=== PATIENT | female | born 1990 | race Caucasian/White ===

== ENCOUNTER → 2018-06-10 | Outpatient (REF) | payer BC | LOC: M SFHCWAGY 16:03 | PROVIDERS: ATTEND Nurse Practitioner Women's Health | DX: Z12.4 Encounter for screening for malignant neoplasm of cervix (principal) ==

== ENCOUNTER → 2018-08-24 | Outpatient (CLI) | payer BC ==
[2018-08-24 18:08] LABS: BASO % 0.3 % (0.0-1.0); EOS # 0.1 10^3/uL (0.0-0.50); EOS % 1.8 % (0.0-3.0); HEMATOCRIT 38.6 % (36.0-47.0); HEMOGLOBIN 12.9 g/dl (12.0-15.5); LYMPH # 1.7 10^3/uL (1.5-6.5); LYMPH % 21.8 % (24.0-44.0); MEAN CORPUSCULAR HEMOGLOBIN 30.5 pg (27.0-33.0); MEAN CORPUSCULAR HGB CONC 33.4 g/dl (32.0-36.5); MEAN CORPUSCULAR VOLUME 91.3 fl (80.0-96.0); MONO # 0.8 10^3/uL (0.0-0.8); MONO % 9.8 % (0.0-5.0); NEUTROPHILS # 5.2 10^3/uL (1.8-7.7); NEUTROPHILS % 65.9 % (36.0-66.0); PLATELET COUNT, AUTOMATED 192 10^3/uL (150-450); RED BLOOD COUNT 4.23 10^6/uL (4.00-5.40); WHITE BLOOD COUNT 7.9 10^3/uL (4.0-10.0)
[2018-08-24 19:45] LABS: CHLAMYDIA DNA AMPLIFICATION NEGATIVE (NEGATIVE); GC DNA AMPLIFICATION NEGATIVE (NEGATIVE)
[2018-08-26 10:34] LABS: HIV 1&2 SCREEN CENTAUR NEGATIVE (NEGATIVE); RUBELLA IgG QUALITATIVE IMMUNE (IMMUNE)
== END ==
LOC: M SMT 15:25
PROVIDERS: ATTEND Advanced Practice Midwife
DX: Z34.81 Encounter for supervision of other normal pregnancy, first trimester (principal); Z3A.01 Less than 8 weeks gestation of pregnancy

== ENCOUNTER → 2018-11-15 | Outpatient (CLI) | payer BC ==
--- NOTE | 2018-11-15 17:54 | REP ---
Clinical: Anatomical evaluation. Comparison: None . Findings: Examination demonstrates a single live intrauterine in breech presentation. motion is identified by technologist. Placenta is noted posterior and grade zero without evidence for placenta previa or abruption. Amniotic fluid volume is normal. Cervix measures 3.3 cm in length and appears closed. No evidence for nuchal cord. Gestational age by current measurements 19 weeks 2 days with SHELDON 04/09/2019 . FHR equals 146 beats per minute. BPD 4.3 cm 19 weeks 1 day HC 15.1 cm 18 weeks 1 day AC 14.1 cm 19 weeks 3 days FL 2.6 cm 19 weeks 6 days HL 2.6 cm 10 weeks 1 day HC/AC ratio 1.07 Estimated weight 252 grams ( 27 percentile). Anatomical assessment demonstrates normal structures including cranium, choroid plexus, cavum, cerebellum/posterior fossa, facial features, lungs, diaphragm, stomach, cord insertion/three-vessel cord, bladder, spine, and extremities. Impression: 1. Single live intrauterine in breech presentation demonstrating appropriate estimated weight. 2. Limited evaluation of the heart/ventricular outflow tracts and kidneys due to positioning. Remainder of the anatomical assessment is complete and normal. Electronically Signed by Ryan Taylor MD 11/15/2018 05:46 P
== END ==
LOC: M RAD 16:35
PROVIDERS: ATTEND Advanced Practice Midwife
DX: Z34.82 Encounter for supervision of other normal pregnancy, second trimester (principal); Z3A.19 19 weeks gestation of pregnancy

== ENCOUNTER → 2018-12-16 | Outpatient (CLI) | payer BC ==
--- NOTE | 2018-12-16 18:45 | REP ---
Static ultrasound for anatomy follow-up: The previous anatomy ultrasound dated 11/15/2018 did not adequately demonstrate the four-chamber view of the heart, cardiac right and left ventricular outflow tracts or the kidneys. The study today is for follow-up of these anatomic structures. On the study today the four-chamber view of the heart, cardiac right and left ventricular outflow tracts and kidneys are adequately demonstrated and are unremarkable. On the study today the facial features are not optimally demonstrated but were adequately seen previously and unremarkable. On the study today the upper lower extremities are not optimally demonstrated but were optimally demonstrated previously and were unremarkable. The remainder of the anatomy today is unremarkable as previously. There are no anomalies. There is again a single intrauterine gestation. position is variable. heart rate is 153 beats per minute. The placenta is posterior. There is no placenta previa or abruptio. Placenta is grade zero. The amniotic fluid volume subjectively is normal. Cervix is 3.0 cm length. Gestational age by today's ultrasound is 22 weeks 6 days/SHELDON 04/15/2019. Gestational age by the first ultrasound is 23 weeks 5 days/SHELDON 04/09/2019. weight is 526 grams/1 pound, 2 ounces. This is the 17th percentile for 23 weeks 5 days. Electronically Signed by Prieto Fowler MD 12/16/2018 06:37 P
== END ==
LOC: M RAD 15:33
PROVIDERS: ATTEND Advanced Practice Midwife
DX: Z36.9 Encounter for antenatal screening, unspecified (principal); Z3A.22 22 weeks gestation of pregnancy

== ENCOUNTER → 2019-02-07 | Outpatient (CLI) | payer BC ==
[~2019-02-07] MED LIST: CALC500T61 PO; CVS500CA5 PO; FOLI400T PO; GNP250TA9 PO; IBUP80TA PO; OXYC1TAB23 PO; PRENTAB9 PO; PROBCAP14 PO
== END ==
LOC: M LAB 06:50
PROVIDERS: ATTEND Obstetrics & Gynecology
DX: Z34.02 Encounter for supervision of normal first pregnancy, second trimester (principal)

== ENCOUNTER → 2019-03-16 | Outpatient (REF) | payer BC ==
[~2019-03-16] MED LIST changes: -CVS500CA5 PO; -GNP250TA9 PO; -IBUP80TA PO; -OXYC1TAB23 PO; -PROBCAP14 PO
== END ==
LOC: M LAB REF 10:40
PROVIDERS: ATTEND Advanced Practice Midwife
DX: Z36.85 Encounter for antenatal screening for Streptococcus B (principal); Z3A.00 Weeks of gestation of pregnancy not specified

== ENCOUNTER → 2019-03-17 | Outpatient (CLI) | payer BC | LOC: M SMT 15:40 | PROVIDERS: ATTEND Advanced Practice Midwife | DX: Z34.03 Encounter for supervision of normal first pregnancy, third trimester (principal) ==

== ENCOUNTER 2019-03-24 04:54 | Outpatient (CLI) | payer BC ==
[~2019-03-24] VITALS: Ht 162.6 cm; Wt 67.5 kg
[2019-03-24 05:11] VITALS: BP 120/68
[2019-03-24] MEDS ORDERED: CALC500T61 PO (05:24)
[2019-03-24] MEDS ORDERED: FOLI400T PO (05:24)
[2019-03-24] MEDS ORDERED: PRENTAB9 PO (05:24)
[2019-03-24 05:27] VITALS: BP 118/70
[2019-03-24 06:58] VITALS: BP 112/75
[2019-03-24] MEDS ORDERED: TERBUTALINE SULFATE 1 MG/ML VIAL (J3105) SC ONE (07:15)
[2019-03-24 07:44] VITALS: BP 113/77
[2019-03-24 08:17] VITALS: BP 115/65
[2019-03-24] MEDS ORDERED: LACTATED RINGER'S 1000 ML IV ONE (08:30)
[2019-03-24 10:09] VITALS: BP 125/80
--- NOTE | 2019-04-04 13:39 | RO ---
DATE OF PROCEDURE: 03/24/2019 PREOPERATIVE DIAGNOSES: 1. Intrauterine at 39 weeks estimated gestational age. 2. Malpresentation with infant in breech presentation. POSTOPERATIVE DIAGNOSIS: 1. Intrauterine at 39 weeks estimated gestational age. 2. Malpresentation with in breech presentation. 3. Status post external cephalic version unsuccessful. PROCEDURE PERFORMED: Attempted external cephalic version. SURGEON: Emmy Mir MD PROFESSIONAL SECURITY OFFICER: None. ANESTHESIA: None. SPECIMENS: None. ESTIMATED BLOOD LOSS: None. URINE OUTPUT: Undetermined. OPERATIVE FINDINGS: An ultrasound with amniotic fluid index was 11 cm, posterior placenta, fetus in a breech presentation. INDICATION FOR PROCEDURE: Ms. Larkin is a 29-year-old, 1, at 37 weeks for scheduled cephalic version for mild presentation. The patient has been thoroughly counseled for management options to include expected management, primary low transverse section at 39 weeks, in external cephalic version. The risks and benefits were discussed regarding management options and all questions answered and she desires to proceed external cephalic version. DESCRIPTION OF PROCEDURE: Ultrasound was performed with above-noted findings. The patient was given 0.25 mg of terbutaline approximately 20 minutes prior to procedure. breech was lifted off from the pelvis and with two attempts with the forward roll were made which was unsuccessful. heart rate was monitored. heart rate was noted to be approximately 130s. Two additional attempts were made with a backward roll, which was also unsuccessful. We paused the procedure for approximately 5 minutes to monitor heart rate and allowed the patient to take a break. One additional forward roll was attempted again unsuccessful, at which time, we aborted the procedure. Electronic monitor was continued approximately an hour with a category 1 tracing. No contractions on tocometer. The patient was discharged home with caution, kick counts and followup the next day for a nonstress test.
== END 2019-03-24 10:15 | disposition home or self-care (01) ==
LOC: M LDO 04:54
PROVIDERS: ATTEND Obstetrics & Gynecology
DX: O26.893 Other specified pregnancy related conditions, third trimester (principal); Z3A.37 37 weeks gestation of pregnancy
CPT/HCPCS: 59025; 59412; 76815; 96372; G0378; G0463; J3105

== ENCOUNTER 2019-03-25 09:38 | Outpatient (CLI) | payer BC ==
[~2019-03-25] VITALS: Ht 162.6 cm; Wt 69.0 kg
[2019-03-25 09:53] VITALS: BP 109/70
== END 2019-03-25 10:13 | disposition home or self-care (01) ==
LOC: M LDO 09:38
PROVIDERS: ATTEND Specialist
DX: O26.893 Other specified pregnancy related conditions, third trimester (principal); Z3A.37 37 weeks gestation of pregnancy
CPT/HCPCS: 59025; G0378; G0463

== ENCOUNTER 2019-04-10 05:36 | Inpatient (IN) | payer BC ==
[~2019-04-10] VITALS: Ht 162.6 cm; Wt 65.7 kg
[2019-04-10] VITALS (8 sets, daily range): BP systolic 104–120; BP diastolic 64–76
[2019-04-10] MEDS ORDERED: CVS500CA5 PO (06:21)
[2019-04-10] MEDS ORDERED: PROBCAP14 PO (06:21)
[2019-04-10] MEDS ORDERED: GNP250TA9 PO (06:21)
[2019-04-10] MEDS ORDERED: BICITRA 30ML SOLN UDC As Ordered ONE (06:48)
[2019-04-10] MEDS ORDERED: ceFAZolin 2 GM/D5W 50 ML IV BAG (J0690 PER 500MG) As Ordered ONE (06:48)
[2019-04-10] MEDS ORDERED: LR 1,000 ML IV ONE (07:00)
[2019-04-10] MEDS ORDERED: ceFAZolin SOD 2 GM in IV 1 EA IV ONE (07:00)
[2019-04-10] MEDS ORDERED: BICITRA 30ML SOLN UDC PO ONE (07:00)
[2019-04-10] MEDS ORDERED: LR 1,000 ML IV SCH ×2 (07:30→09:30)
[2019-04-10] MEDS ORDERED: MORPHINE PRES-FREE INJ 10 MG/10 ML VIAL (J2274) As Ordered ONE ×2 (07:40→08:24)
[2019-04-10] MEDS ORDERED: OXYTOCIN INJ 10 UNITS/ML VIAL (J2590) As Ordered ONE ×2 (07:41→07:42)
[2019-04-10 08:06] LABS: HEMATOCRIT 43.6 % (36.0-47.0); HEMOGLOBIN 14.4 g/dl (12.0-15.5); MEAN CORPUSCULAR HEMOGLOBIN 30.1 pg (27.0-33.0); MEAN CORPUSCULAR VOLUME 91.2 fl (80.0-96.0); PLATELET COUNT, AUTOMATED 144 10^3/uL (150-450); RED BLOOD COUNT 4.78 10^6/uL (4.00-5.40); WHITE BLOOD COUNT 8.6 10^3/uL (4.0-10.0)
[2019-04-10] MEDS ORDERED: METOCLOPRAMIDE INJ 10MG/2ML VIAL (J2765) IV PRN ×2 (08:20→09:30)
[2019-04-10] MEDS ORDERED: NALBUPHINE HCL 10 MG/ML AMP (J2300) IV PRN (08:20)
[2019-04-10] MEDS ORDERED: ONDANSETRON 4MG/2ML VIAL (J2405) IV PRN (08:20)
[2019-04-10] MEDS ORDERED: NALOXONE INJ 0.4 MG/1 ML VIAL (J2310) IV PRN ×2 (08:20)
[2019-04-10] MEDS ORDERED: diphenhydrAMINE INJ 50MG/ML VIAL (J1200) IV PRN (08:20)
[2019-04-10] MEDS ORDERED: PHENYLephrine HCL 500 MCG/5 ML (100MCG/ML) SYRINGE (J2370) As Ordered ONE (08:24)
[2019-04-10] MEDS ORDERED: ONDANSETRON 4MG/2ML VIAL (J2405) As Ordered ONE (08:48)
[2019-04-10] MEDS ORDERED: KETOROLAC 60 MG/2 ML VIAL (J1885) As Ordered ONE (08:48)
[2019-04-10] MEDS: PRENATAL VITAMINS CHEWABLE TABLET PO SCH (09:00)
[2019-04-10] MEDS: LR 1,000 ML IV SCH ×2 (09:13→17:13)
[2019-04-10] MEDS ORDERED: OXYTOCIN DRIP 30 UNITS in IV 1 EA IV SCH (09:13)
[2019-04-10] MEDS ORDERED: MOM 30ML SUSPENSION UDC PO PRN (09:15)
[2019-04-10] MEDS ORDERED: MEASLES,MUMPS,RUBELLA VACCINE INJ (MMR-II) (90707) SC SCH (09:15)
[2019-04-10] MEDS ORDERED: PERCOCET 5MG/325MG TAB PO PRN ×2 (09:15)
[2019-04-10] MEDS ORDERED: ONDANSETRON 4 MG ORAL DISINTEGRATING TAB (Q0162 PER 1MG) PO PRN (09:15)
[2019-04-10] MEDS ORDERED: KETOROLAC 30 MG/ML VIAL (J1885) IV SCH (09:15)
[2019-04-10] MEDS ORDERED: RHOGAM 300 MCG (1500 IU) INJ (J2790) IM SCH (09:15)
[2019-04-10] MEDS ORDERED: OXYTOCIN 30 UNITS IN 0.9% NaCl 500ML IV BAG (J2590) As Ordered ONE (09:16)
[2019-04-10] MEDS ORDERED: fentaNYL 100 MCG/2 ML INJECTION (J3010) IV PRN (09:30)
[2019-04-10] MEDS ORDERED: IBUPROFEN 800 MG TAB PO SCH (11:00)
--- NOTE | 2019-04-10 12:10 | RO ---
DATE OF PROCEDURE: 04/10/2019 PREOPERATIVE DIAGNOSES: 1. Intrauterine at 39 plus weeks. 2. Breech presentation. POSTOPERATIVE DIAGNOSES: 1. Intrauterine at 39 plus weeks. 2. Breech presentation. PROCEDURE PERFORMED: Primary lower transverse section. SURGEON: Emmy Mir MD ASSISTANTS: Hannah Padgett CNM ANESTHESIA: Spinal. ESTIMATED BLOOD LOSS: 400 mL. INTRAVENOUS FLUIDS: 1 liter of lactated Ringer solution. URINE OUTPUT: 150 mL. PREOPERATIVE ANTIBIOTICS: 2 grams of Ancef. OPERATIVE FINDINGS: Liveborn male infant in the breech presentation, score 9 and 10. Weight was 2850 grams or 6 pounds 5 ounces. DESCRIPTION OF OPERATION: After informed consent was obtained and written consent was reviewed, the patient was brought to the operating room where spinal anesthesia was placed. She was then placed in a supine position with a left lateral tilt. A Bowden catheter was placed and set to gravity. She was then prepped and draped in a normal sterile fashion. A time-out in the operating room was then performed, identifying the patient, procedure to be performed, as well as drug allergies. Anesthesia was tested and deemed to be adequate. A Pfannenstiel skin incision was then made and this was carried down to the underlying rectus fascia. The fascia was scored and this incision was extended bilaterally. The fascia was then dissected off the underlying rectus muscles both superiorly and inferiorly. The rectus muscles were in the midline. The peritoneum was then entered. The vesicouterine peritoneum was then identified and excised to create a bladder flap. A Mobius retractor was then placed. A curvilinear incision was then made in the lower uterine segment. Amniotomy was productive of clear fluid. The uterus incision was extended. breech was brought to level of incision and was delivered along with lower extremities. The fetus was delivered down to the level of scapula where the upper extremity was delivered, followed by head. The cord was clamped times two and was cut, and the infant was taken over to warmer with a good cry. Placenta was then delivered grossly intact. The uterus was then cleared of all clots and debris. The uterine incision was closed using two layers of #0 Vicryl, first in a running locking fashion, followed by a second layer for imbrication in a running nonlocking fashion. The abdomen was then suctioned. The uterine incision was inspected and noted to be hemostatic. The anterior peritoneum was then reapproximated with #3-0 Vicryl. The rectus muscles were then reapproximated with #3-0 Vicryl. The fascia was then closed with #0 Vicryl in a running nonlocking fashion. Subcutaneous tissue was then irrigated and suctioned. The subcutaneous tissue was then reapproximated with #3-0 Vicryl. Several subdermal stitches were placed with #3-0 Vicryl and the skin was closed with #4-0 Monocryl in a subcuticular fashion. The incision was then cleaned and dry and was dressed. The patient was then taken to recovery in stable condition. Counts were correct. Hannah Padgett, my surgical technology instructor, played an essential role in the surgery. She assisted with tissue identification and retraction, delivery of the , as well as wound closure. REGIS
[2019-04-10] MEDS: KETOROLAC 30 MG/ML VIAL (J1885) IV SCH ×2 (14:18→21:22)
[2019-04-10] MEDS: DOCUSATE SODIUM 100 MG CAP PO SCH (21:21)
[2019-04-11 02:00] VITALS: BP 102/57
[2019-04-11] MEDS: KETOROLAC 30 MG/ML VIAL (J1885) IV SCH (03:39)
[2019-04-11 06:00] VITALS: BP 102/55
[2019-04-11 06:52] LABS: HEMATOCRIT 36.9 % (36.0-47.0); MEAN CORPUSCULAR HEMOGLOBIN 30.3 pg (27.0-33.0); MEAN CORPUSCULAR HGB CONC 33.1 g/dl (32.0-36.5); MEAN CORPUSCULAR VOLUME 91.8 fl (80.0-96.0); PLATELET COUNT, AUTOMATED 131 10^3/uL (150-450); RED BLOOD COUNT 4.02 10^6/uL (4.00-5.40); WHITE BLOOD COUNT 11.7 10^3/uL (4.0-10.0)
[2019-04-11 06:53] LABS: HEMOGLOBIN 12.2 g/dl (12.0-15.5)
--- NOTE | 2019-04-11 07:07 | IPNPDOC ---
Progress Note Date of Service: Apr 11, 2019 Day#: 1 Progress Note SUBJECT: She has been ambulating, voiding spontaneously without issue and tolerating regular diet. Reports lochia is like a normal period. Reports no pain at this time. OBJECTIVE: VITAL SIGNS: Within normal limits, afebrile. Alert and oriented times three. Breath sounds clear to auscultation. Heart rate: Regular rate and rhythm, no murmurs, rubs or gallops. Abdomen: Fundus firm at U. Minimal to moderate lochia. ASSESSMENT: Day 1 postoperative PLAN: 1. Continue supportive nursing care and pain management. 2. Anticipate discharge to home tomorrow. VS, I&O, 24H, Fishbone Vital Signs/I&O Vital Signs Date Time Temp Pulse Resp B/P (MAP) Pulse Ox O2 Delivery O2 Flow Rate FiO2 04/11/19 06:00 98.9 76 20 102/55 (71) 98 Room Air I&O- Last 24 Hours up to 6 AM 04/11/19 06:00 Intake Total 3341 ml Output Total 1550 ml Balance 1791 ml Laboratory Data 24H LABS Laboratory Tests 2 04/10/19 07:58: Nucleated Red Blood Cells % (auto) 0.0, Syphilis Serology NONREACTIVE 04/11/19 06:21: Nucleated Red Blood Cells % (auto) 0.0 CBC/BMP Laboratory Tests 04/10/19 07:58 04/11/19 06:21 KEMAL KENDRICK CNM Apr 11, 2019 07:07
[2019-04-11] MEDS ORDERED: PRENATAL VITAMINS CHEWABLE TABLET PO SCH ×2 (09:00)
[2019-04-11] MEDS: DOCUSATE SODIUM 100 MG CAP PO SCH ×2 (09:19→21:09)
[2019-04-11] MEDS: PRENATAL VITAMINS CHEWABLE TABLET PO SCH (09:20)
[2019-04-11 10:00] VITALS: BP 109/69
[2019-04-11] MEDS: IBUPROFEN 800 MG TAB PO SCH ×2 (11:00→18:29)
[2019-04-11] MEDS ORDERED: IBUPROFEN 800 MG TAB PO SCH (11:15)
[2019-04-11 14:00] VITALS: BP 112/68
[2019-04-11 18:00] VITALS: BP 119/70
[2019-04-11 22:00] VITALS: BP 117/61
[2019-04-11] MEDS: ACETAMINOPHEN 500 MG TAB PO PRN (22:06)
[2019-04-12 02:00] VITALS: BP 112/70
[2019-04-12] MEDS: IBUPROFEN 800 MG TAB PO SCH ×2 (03:10→10:12)
[2019-04-12] MEDS: ACETAMINOPHEN 500 MG TAB PO PRN ×2 (05:08→14:00)
[2019-04-12 06:00] VITALS: BP 107/62
[2019-04-12] MEDS ORDERED: OXYC1TAB23 PO (06:11)
[2019-04-12] MEDS ORDERED: IBUP80TA PO (06:11)
[2019-04-12] MEDS: PRENATAL VITAMINS CHEWABLE TABLET PO SCH (09:00)
[2019-04-12] MEDS: DOCUSATE SODIUM 100 MG CAP PO SCH (09:00)
[2019-04-12] MEDS ORDERED: INFLUENZA QUADRIVALENT PF VACCINE 0.5ML SYRINGE (90686) IM ONE (11:00)
--- NOTE | 2019-04-12 22:05 | DSES ---
DATE OF ADMISSION: 04/10/2019 DATE OF DISCHARGE: 04/12/2019 HISTORY: 29-year-old female at 39 weeks gestation with infant in breech presentation. Patient presents for primary section. HOSPITAL COURSE: On 04/11/2019, she underwent primary section for a 6 pound 5 ounce male infant. There were no complications. Her postoperative course was unremarkable. She had adequate return of bladder and bowel function. Her postoperative hemoglobin was 12.2 grams/dL. She was deemed stable for discharge on postoperative day #2. ADMISSION DIAGNOSIS: 39 weeks, breech. DISCHARGE DIAGNOSIS: Delivered. PROCEDURE: Primary low transverse section. DISPOSITION: The patient will followup with Dr. Mir in 2 weeks. Instructions were reviewed.
== END 2019-04-12 16:05 | disposition home or self-care (01) | DRG 540 ==
LOC: M LDI 05:36 → M OBS 11:00
PROVIDERS: ADMIT Obstetrics & Gynecology; ATTEND Obstetrics & Gynecology
PROC: 10D00Z1 Extraction of Products of Conception, Low, Open Approach (ICD-10-PCS; principal; 2019-04-10 07:30)
DX: O32.1XX0 Maternal care for breech presentation, not applicable or unspecified (principal); Z3A.39 39 weeks gestation of pregnancy; Z37.0 Single live birth

== ENCOUNTER → 2019-10-03 | Outpatient (REF) | payer BC ==
[~2019-10-03] MED LIST changes: +CVS500CA5 PO; +GNP250TA9 PO; +IBUP80TA PO; +OXYC1TAB23 PO; +PROBCAP14 PO
== END ==
LOC: M PLALAB 15:33
PROVIDERS: ATTEND Obstetrics & Gynecology
DX: Z01.419 Encounter for gynecological examination (general) (routine) without abnormal findings (principal)

== ENCOUNTER → 2019-10-06 | Outpatient (CLI) | payer BC ==
--- NOTE | 2019-10-06 10:33 | REP ---
PELVIC SONOGRAPHY: HISTORY: IUD. Lost strings. FINDINGS: Transabdominal scanning demonstrates a mildly prominent sized uterus with dimensions of 9.5 x 3.5 x 7.2 cm. Endometrial stripe is 0.7 cm thick and contains a linear T-shaped IUD in good position. No focal uterine mass is seen. No free fluid is seen. Right ovary measures 3.5 x 2.8 x 3.5 cm. There is a 2.3 cm follicle cyst in the right ovary. Doppler flow is present in the right ovary, resistive index by Doppler 0.60. Left ovary measures 3.8 x 1.8 x 2.9 cm. It has a normal appearance. IMPRESSION: IUD in good position. Mildly prominent size uterus. Otherwise negative.
== END ==
LOC: M WHC 08:32
PROVIDERS: ATTEND Obstetrics & Gynecology
DX: Z97.5 Presence of (intrauterine) contraceptive device (principal); N83.291 Other ovarian cyst, right side

== ENCOUNTER → 2021-02-27 | Outpatient (CLI) | payer BC ==
[~2021-02-27] MED LIST changes: -FOLI400T PO; +FOLI400T13 PO
[2021-02-27 08:56] LABS: BASO % 0.6 % (0.0-1.0); EOS # 0.1 10^3/uL (0.0-0.5); EOS % 1.4 % (0.0-3.0); HEMATOCRIT 39.7 % (36.0-47.0); HEMOGLOBIN 13.3 g/dl (12.0-15.5); LYMPH # 1.3 10^3/uL (1.5-5.0); LYMPH % 26.3 % (24.0-44.0); MEAN CORPUSCULAR HEMOGLOBIN 30.3 pg (27.0-33.0); MEAN CORPUSCULAR HGB CONC 33.5 g/dl (32.0-36.5); MEAN CORPUSCULAR VOLUME 90.4 fl (80.0-96.0); MONO # 0.4 10^3/uL (0.0-0.8); MONO % 8.5 % (2.0-8.0); NEUTROPHILS # 3.2 10^3/uL (1.5-8.5); NEUTROPHILS % 62.8 % (36.0-66.0); PLATELET COUNT, AUTOMATED 176 10^3/uL (150-450); RED BLOOD COUNT 4.39 10^6/uL (4.00-5.40); WHITE BLOOD COUNT 5.1 10^3/uL (4.0-10.0)
[2021-02-27 09:26] LABS: ALBUMIN 3.8 GM/DL (3.2-5.2); ALT/SGPT 27 U/L (12-78); BILIRUBIN,TOTAL 0.4 MG/DL (0.2-1.0); BLOOD UREA NITROGEN 14 MG/DL (7-18); CALCIUM LEVEL 9.6 MG/DL (8.5-10.1); CARBON DIOXIDE LEVEL 29 MEQ/L (21-32); CHLORIDE LEVEL 105 MEQ/L (98-107); CREATININE FOR GFR 0.81 MG/DL (0.55-1.30); FREE T4 0.73 NG/DL (0.76-1.46); GLOMERULAR FILTRATION RATE > 60.0 (>60); GLUCOSE, FASTING 77 MG/DL (70-100); POTASSIUM SERUM 4.3 MEQ/L (3.5-5.1); SODIUM LEVEL 138 MEQ/L (136-145); TOTAL PROTEIN 6.8 GM/DL (6.4-8.2)
== END ==
LOC: M LAB 07:46
PROVIDERS: ATTEND Family Medicine
DX: Z13.29 Encounter for screening for other suspected endocrine disorder (principal)

== ENCOUNTER → 2021-04-07 | Outpatient (REF) | LOC: M EMP 11:54 | PROVIDERS: ATTEND Family Medicine | DX: Z11.52 Encounter for screening for COVID-19 (principal) ==

== ENCOUNTER → 2021-04-11 | Outpatient (REF) | LOC: M EMP 09:08 | PROVIDERS: ATTEND Family Medicine | DX: Z11.52 Encounter for screening for COVID-19 (principal) ==

== ENCOUNTER → 2021-07-09 | Outpatient (CLI) | payer BC | LOC: M RAD 15:34 | PROVIDERS: ATTEND Obstetrics & Gynecology | DX: Z34.82 Encounter for supervision of other normal pregnancy, second trimester (principal); Z3A.16 16 weeks gestation of pregnancy ==

== ENCOUNTER → 2021-09-08 | Outpatient (CLI) | payer BC ==
[2021-09-08 17:34] LABS: HEMATOCRIT 37.9 % (36.0-47.0); HEMOGLOBIN 12.8 g/dl (12.0-15.5); MEAN CORPUSCULAR HEMOGLOBIN 29.5 pg (27.0-33.0); MEAN CORPUSCULAR HGB CONC 33.8 g/dl (32.0-36.5); MEAN CORPUSCULAR VOLUME 87.3 fl (80.0-96.0); PLATELET COUNT, AUTOMATED 158 10^3/uL (150-450); RED BLOOD COUNT 4.34 10^6/uL (4.00-5.40); WHITE BLOOD COUNT 10.7 10^3/uL (4.0-10.0)
== END ==
LOC: M LAB 16:09
PROVIDERS: ATTEND Advanced Practice Midwife
DX: O34.211 Maternal care for low transverse scar from previous cesarean delivery (principal); Z3A.00 Weeks of gestation of pregnancy not specified

== ENCOUNTER → 2021-09-09 | Outpatient (CLI) | payer BC | LOC: M LAB 06:29 | PROVIDERS: ATTEND Advanced Practice Midwife | DX: O34.211 Maternal care for low transverse scar from previous cesarean delivery (principal); Z3A.00 Weeks of gestation of pregnancy not specified ==

== ENCOUNTER → 2021-09-15 | Outpatient (CLI) | payer BC | LOC: M LAB 07:09 | PROVIDERS: ATTEND Advanced Practice Midwife | DX: O99.810 Abnormal glucose complicating pregnancy (principal) ==

== ENCOUNTER → 2021-09-26 | Outpatient (CLI) | payer BC | LOC: M WHC 15:21 | PROVIDERS: ATTEND Obstetrics & Gynecology | DX: O26.843 Uterine size-date discrepancy, third trimester (principal); Z3A.31 31 weeks gestation of pregnancy ==

== ENCOUNTER → 2021-10-29 | Outpatient (REF) | payer BC | LOC: M SFHCWAGY 09:45 | PROVIDERS: ATTEND Specialist | DX: Z34.83 Encounter for supervision of other normal pregnancy, third trimester (principal); Z3A.00 Weeks of gestation of pregnancy not specified ==

== ENCOUNTER 2021-11-16 04:46 | Inpatient (IN) | payer BC ==
[~2021-11-16] VITALS: Ht 162.6 cm; Wt 67.5 kg
[2021-11-16 05:01] VITALS: BP 133/89
[2021-11-16] MEDS ORDERED: OXYTOCIN DRIP 30 UNITS in IV 1 EA IV PRN (05:15)
[2021-11-16] MEDS ORDERED: OXYTOCIN INJ 10 UNITS/ML VIAL (J2590) IM PRN (05:15)
[2021-11-16] MEDS ORDERED: TRANEXAMIC ACID INJection 1,000 MG in NS 100 ML IV PRN (05:15)
[2021-11-16] MEDS ORDERED: METHYLERGONOVINE MALEATE 0.2 MG/ML VIAL (J2210) IM PRN (05:15)
[2021-11-16] MEDS ORDERED: CARBOPROST TROMETHAMINE 250 MCG/ML AMP IM PRN (05:15)
[2021-11-16] MEDS ORDERED: OXYTOCIN 30 UNITS IN 0.9% NaCl 500ML IV BAG (J2590) As Ordered ONE (05:22)
[2021-11-16 05:47] LABS: HEMATOCRIT 38.8 % (36.0-47.0); HEMOGLOBIN 13.5 g/dl (12.0-15.5); MEAN CORPUSCULAR HEMOGLOBIN 30.1 pg (27.0-33.0); MEAN CORPUSCULAR HGB CONC 34.8 g/dl (32.0-36.5); MEAN CORPUSCULAR VOLUME 86.4 fl (80.0-96.0); PLATELET COUNT, AUTOMATED 157 10^3/uL (150-450); RED BLOOD COUNT 4.49 10^6/uL (4.00-5.40); WHITE BLOOD COUNT 12.8 10^3/uL (4.0-10.0)
[2021-11-16] MEDS ORDERED: LIDOCAINE 1% MDV 20ML VIAL As Ordered ONE (05:57)
[2021-11-16 06:06] VITALS: BP 134/75
[2021-11-16 06:25] VITALS: BP 111/67
[2021-11-16 06:37] VITALS: BP 112/67
[2021-11-16] MEDS ORDERED: ACETAMINOPHEN 500 MG TAB PO PRN (06:50)
[2021-11-16] MEDS ORDERED: DIBUCAINE 1% OINTMENT 30GM TOP PRN (06:50)
[2021-11-16] MEDS ORDERED: IBUPROFEN 600MG TAB PO PRN (06:50)
[2021-11-16] MEDS ORDERED: ACETAMINOPHEN TAB 650MG DOSE (2X325MG) PO PRN (06:50)
[2021-11-16] MEDS ORDERED: ANUSOL HC CREAM 30GM TOP PRN (06:50)
[2021-11-16] MEDS ORDERED: OXYTOCIN DRIP 30 UNITS in IV 1 EA IV SCH (06:50)
[2021-11-16] MEDS ORDERED: RHOGAM 300 MCG (1500 IU) INJ (J2790) IM SCH (06:50)
[2021-11-16] MEDS ORDERED: MOM 30ML SUSPENSION UDC PO PRN (06:50)
[2021-11-16] MEDS ORDERED: DOCUSATE SODIUM 100MG CAPSULE PO PRN (06:50)
[2021-11-16] MEDS ORDERED: IBUPROFEN 800 MG TAB PO PRN (06:50)
[2021-11-16] MEDS ORDERED: METHYLERGONOVINE MALEATE 0.2 MG TAB PO PRN (06:50)
[2021-11-16] MEDS ORDERED: LIDOCAINE 1% MDV 20ML VIAL SC ONE (07:00)
[2021-11-16 09:15] VITALS: BP 153/71
[2021-11-16] MEDS: PRENATAL VITAMINS CHEWABLE TABLET PO SCH (09:30)
[2021-11-16 18:30] VITALS: BP 130/68
[2021-11-17 05:47] VITALS: BP 101/61
[2021-11-17] MEDS: PRENATAL VITAMINS CHEWABLE TABLET PO SCH (09:00)
[2021-11-17] MEDS ORDERED: IBUP80TA PO (12:03)
[2021-11-17] MEDS ORDERED: ACET-683 PO (12:03)
[2021-11-18] MEDS ORDERED: MEASLES,MUMPS,RUBELLA VACCINE INJ (MMR-II) (90707) SC.IMMUN ONE (09:00)
== END 2021-11-17 15:47 | disposition home or self-care (01) | DRG 560 ==
LOC: M LDO 04:46 → M LDI 05:17 → M OBS 09:13
PROVIDERS: ADMIT Obstetrics & Gynecology; ATTEND Obstetrics & Gynecology
PROC: 10E0XZZ Delivery of Products of Conception, External Approach (ICD-10-PCS; principal; 2021-11-16)
PROC: 0HQ9XZZ Repair Perineum Skin, External Approach (ICD-10-PCS; 2021-11-16)
DX: O34.211 Maternal care for low transverse scar from previous cesarean delivery (principal); O70.0 First degree perineal laceration during delivery; Z37.0 Single live birth; Z3A.38 38 weeks gestation of pregnancy

== ENCOUNTER → 2022-05-06 | Outpatient (REF) ==
[~2022-05-06] MED LIST changes: +ACET-683 PO
[2022-05-06 15:05] LABS: RSV AMPLIFICATION NEGATIVE (NEGATIVE)
== END ==
LOC: M LABSMTC 10:17
PROVIDERS: ATTEND Family Medicine
DX: Z20.818 Contact with and (suspected) exposure to other bacterial communicable diseases (principal)

== ENCOUNTER → 2023-03-01 | Outpatient (CLI) | payer BC ==
[2023-03-01 17:09] LABS: BASO # 0.1 10^3/uL (0.0-0.2); BASO % 0.7 % (0.0-1.0); EOS # 0.1 10^3/uL (0.0-0.5); EOS % 1.1 % (0.0-3.0); HEMATOCRIT 40.9 % (36.0-47.0); HEMOGLOBIN 13.6 g/dl (12.0-15.5); LYMPH # 1.8 10^3/uL (1.5-5.0); LYMPH % 24.9 % (24.0-44.0); MEAN CORPUSCULAR HEMOGLOBIN 29.6 pg (27.0-33.0); MEAN CORPUSCULAR HGB CONC 33.3 g/dl (32.0-36.5); MEAN CORPUSCULAR VOLUME 88.9 fl (80.0-96.0); MONO # 0.5 10^3/uL (0.0-0.8); MONO % 6.9 % (2.0-8.0); NEUTROPHILS # 4.8 10^3/uL (1.5-8.5); NEUTROPHILS % 66.1 % (36.0-66.0); PLATELET COUNT, AUTOMATED 194 10^3/uL (150-450); WHITE BLOOD COUNT 7.3 10^3/uL (4.0-10.0)
[2023-03-01 17:15] LABS: ALKALINE PHOSPHATASE 61 U/L (46-116); ALT/SGPT 23 U/L (7.0-40); AST/SGOT 16 U/L (<34); BILIRUBIN,TOTAL 0.5 MG/DL (0.3-1.2); BLOOD UREA NITROGEN 18 MG/DL (9-23); CALCIUM LEVEL 10.2 MG/DL (8.5-10.1); CARBON DIOXIDE LEVEL 29 MMOL/L (20-31); CHLORIDE LEVEL 107 MMOL/L (98-107); CHOLESTEROL LEVEL 179 MG/DL (<200); CHOLESTEROL RISK RATIO 2.81 (<5); CREATININE FOR GFR 0.88 MG/DL (0.55-1.30); GLOMERULAR FILTRATION RATE > 60.0 (>60); GLUCOSE, FASTING 88 MG/DL (60-100); HDL CHOLESTEROL 63.5 MG/DL (>40); LDL CHOLESTEROL 94.9 MG/DL (<100); NON-HDL-C 115.5 MG/DL; POTASSIUM SERUM 4.9 MMOL/L (3.5-5.1); SODIUM LEVEL 141 MMOL/L (136-145); TOTAL PROTEIN 6.8 G/DL (5.7-8.2); TRIGLYCERIDES LEVEL 103 MG/DL (<150)
[2023-03-01 17:18] LABS: FREE T4 0.92 NG/DL (0.89-1.76); THYROID STIMULATING HORMONE 1.819 uIU/ML (0.55-4.78)
== END ==
LOC: M LAB 16:05
PROVIDERS: ATTEND Family Medicine
DX: Z13.29 Encounter for screening for other suspected endocrine disorder (principal); Z13.220 Encounter for screening for lipoid disorders; Z13.0 Encounter for screening for diseases of the blood and blood-forming organs and certain disorders involving the immune mechanism

== ENCOUNTER → 2023-05-04 | Outpatient (CLI) | payer BC | LOC: M RAD 15:19 | PROVIDERS: ATTEND Family Medicine | DX: R09.89 Other specified symptoms and signs involving the circulatory and respiratory systems (principal); Z82.49 Family history of ischemic heart disease and other diseases of the circulatory system ==

== ENCOUNTER → 2024-02-17 | Outpatient (CLI) | payer OTHER ==
[~2024-02-17] MED LIST changes: +CRAN500C11 PO; -CVS500CA5 PO
[2024-02-17 07:32] LABS: BASO % 0.4 % (0.0-1.0); EOS # 0.1 10^3/uL (0.0-0.5); HEMATOCRIT 39.3 % (36.0-47.0); HEMOGLOBIN 13.3 g/dl (12.0-15.5); LYMPH # 1.3 10^3/uL (1.5-5.0); LYMPH % 19.2 % (24.0-44.0); MEAN CORPUSCULAR HEMOGLOBIN 29.9 pg (27.0-33.0); MEAN CORPUSCULAR HGB CONC 33.8 g/dl (32.0-36.5); MEAN CORPUSCULAR VOLUME 88.3 fl (80.0-96.0); MONO # 0.5 10^3/uL (0.0-0.8); MONO % 6.7 % (2.0-8.0); NEUTROPHILS # 4.9 10^3/uL (1.5-8.5); NEUTROPHILS % 72.1 % (36.0-66.0); PLATELET COUNT, AUTOMATED 183 10^3/uL (150-450); RED BLOOD COUNT 4.45 10^6/uL (4.00-5.40); WHITE BLOOD COUNT 6.8 10^3/uL (4.0-10.0)
[2024-02-17 07:40] LABS: ALBUMIN 3.3 G/DL (3.2-5.2); ALKALINE PHOSPHATASE 42 U/L (46-116); ALT/SGPT 13 U/L (7.0-40); AST/SGOT 11 U/L (<34); BILIRUBIN,TOTAL 0.8 MG/DL (0.3-1.2); BLOOD UREA NITROGEN 13 MG/DL (9-23); CALCIUM LEVEL 9.6 MG/DL (8.5-10.1); CARBON DIOXIDE LEVEL 27 MMOL/L (20-31); CHLORIDE LEVEL 108 MMOL/L (98-107); CHOLESTEROL LEVEL 157 MG/DL (<200); CHOLESTEROL RISK RATIO 2.73 (<5); CREATININE FOR GFR 0.72 MG/DL (0.55-1.30); GLOMERULAR FILTRATION RATE > 60.0 (>60); GLUCOSE, FASTING 79 MG/DL (60-100); HDL CHOLESTEROL 57.4 MG/DL (>40); NON-HDL-C 99.6 MG/DL; POTASSIUM SERUM 4.2 MMOL/L (3.5-5.1); SODIUM LEVEL 138 MMOL/L (136-145); TOTAL PROTEIN 6.2 G/DL (5.7-8.2); TRIGLYCERIDES LEVEL 88 MG/DL (<150)
[2024-02-17 07:42] LABS: FREE T4 1.01 NG/DL (0.89-1.76); THYROID STIMULATING HORMONE 2.123 uIU/ML (0.55-4.78)
== END ==
LOC: M LAB 06:48
PROVIDERS: ATTEND Family Medicine
DX: Z13.29 Encounter for screening for other suspected endocrine disorder (principal)

== ENCOUNTER → 2024-03-13 | Outpatient (CLI) | payer OTHER ==
[~2024-03-13] MED LIST changes: -CRAN500C11 PO; +CVS500CA5 PO
[2024-03-13 09:41] LABS: HEMOGLOBIN 12.9 g/dl (12.0-15.5); MEAN CORPUSCULAR HEMOGLOBIN 30.5 pg (27.0-33.0); MEAN CORPUSCULAR HGB CONC 33.9 g/dl (32.0-36.5); MEAN CORPUSCULAR VOLUME 89.8 fl (80.0-96.0); PLATELET COUNT, AUTOMATED 172 10^3/uL (150-450); RED BLOOD COUNT 4.23 10^6/uL (4.00-5.40); WHITE BLOOD COUNT 6.8 10^3/uL (4.0-10.0)
[2024-03-13 10:28] LABS: HIV 1&2 SCREEN NEGATIVE (NEGATIVE)
[2024-03-13 10:35] LABS: HEPATITIS C VIRUS ABY INDEX < 0.02 INDEX (<0.8)
[2024-03-13 11:16] LABS: GC DNA AMPLIFICATION NEGATIVE (NEGATIVE)
== END ==
LOC: M LAB 08:22
PROVIDERS: ATTEND Obstetrics & Gynecology
DX: Z34.91 Encounter for supervision of normal pregnancy, unspecified, first trimester (principal)

== ENCOUNTER → 2024-04-19 | Outpatient (CLI) | payer OTHER | LOC: M RAD 07:15 | PROVIDERS: ATTEND Obstetrics & Gynecology | DX: Z34.82 Encounter for supervision of other normal pregnancy, second trimester (principal) ==

== ENCOUNTER → 2024-06-09 | Outpatient (CLI) | payer OTHER ==
[2024-06-09 11:10] LABS: HEMATOCRIT 37.2 % (36.0-47.0); HEMOGLOBIN 12.3 g/dl (12.0-15.5); MEAN CORPUSCULAR HEMOGLOBIN 30.1 pg (27.0-33.0); MEAN CORPUSCULAR HGB CONC 33.1 g/dl (32.0-36.5); MEAN CORPUSCULAR VOLUME 91.2 fl (80.0-96.0); PLATELET COUNT, AUTOMATED 152 10^3/uL (150-450); RED BLOOD COUNT 4.08 10^6/uL (4.00-5.40); WHITE BLOOD COUNT 6.7 10^3/uL (4.0-10.0)
[2024-06-09 11:39] LABS: GLUCOSE CHALLENGE TEST 1 HOUR 134 MG/DL (LESS THAN 140)
[2024-06-09 12:09] LABS: HIV 1&2 SCREEN NEGATIVE (NEGATIVE)
[2024-06-09 12:17] LABS: HEPATITIS C VIRUS ABY INDEX 0.02 INDEX (<0.8)
[2024-06-09 12:44] LABS: GC DNA AMPLIFICATION NEGATIVE (NEGATIVE)
== END ==
LOC: M LAB 08:43
PROVIDERS: ATTEND Obstetrics & Gynecology
DX: Z34.93 Encounter for supervision of normal pregnancy, unspecified, third trimester (principal)

== ENCOUNTER → 2024-06-15 | Outpatient (CLI) | payer OTHER | LOC: M LAB 06:38 | PROVIDERS: ATTEND Obstetrics & Gynecology | DX: R73.02 Impaired glucose tolerance (oral) (principal) ==

== ENCOUNTER → 2024-07-28 | Outpatient (CLI) | payer OTHER | LOC: M WHC 10:43 | PROVIDERS: ATTEND Obstetrics & Gynecology | DX: Z34.83 Encounter for supervision of other normal pregnancy, third trimester (principal) ==

== ENCOUNTER → 2024-08-17 | Outpatient (REF) | payer OTHER | LOC: M SFHCWAGY 17:13 | PROVIDERS: ATTEND Advanced Practice Midwife | DX: Z34.83 Encounter for supervision of other normal pregnancy, third trimester (principal) ==

== ENCOUNTER → 2025-03-09 | Outpatient (REF) | payer OTHER ==
[~2025-03-09] MED LIST changes: +ESCI5SOL3 PO; +LEXA1TAB PO
[2025-03-13 13:02] LABS: HPV APTIMA Not Detected (Not Detected)
== END ==
LOC: M PLALAB 11:57
PROVIDERS: ATTEND Physician Assistant
DX: Z12.4 Encounter for screening for malignant neoplasm of cervix (principal)
CPT/HCPCS: 87624; G0123